=== PATIENT | male | born 1975 | race Caucasian/White ===

== ENCOUNTER 2021-10-03 16:59 | Emergency (ER) | payer OTHER ==
[~2021-10-03] VITALS: Ht 185.4 cm; Wt 131.1 kg
[~2021-10-03 16:59] MED LIST: ALBU90I INH; ALEVE220 MG PO; CODGUAEL PO; Cleocin HCl300 MG PO; GABA300; HYDACE5 PO; Ibuprofen Ib100 MG PO; MINOCIN100 MG IV; NAPR550 PO; Norco 5-325 Ta1 EACH PO; PRED20 PO; Percocet 5-3251 EACH PO; TRAM50 PO
[2021-10-03] MEDS ORDERED: METOPROLOL SUCC25 MG PO (17:57)
== END 2021-10-03 20:06 | disposition home or self-care (01) ==
LOC: ER 16:59
DX: U07.1 COVID-19 (principal); Z87.891 Personal history of nicotine dependence; Z88.0 Allergy status to penicillin; Z88.2 Allergy status to sulfonamides; Z88.1 Allergy status to other antibiotic agents
CPT/HCPCS: 36415; 99283-25; M0243; Q0243

== ENCOUNTER 2023-11-07 06:23 | Day surgery (SDC) | payer OTHER ==
[~2023-11-07] VITALS: Ht 185.4 cm; Wt 317.0 kg
[2023-11-07] VITALS (7 sets, daily range): BP systolic 121–143; BP diastolic 79–89
[~2023-11-07 06:23] MED LIST changes: +AMLO10 PO; +ATOR40TA PO; +Aspir 8181 MG PO; +CARV3.125 PO; +METOPROLOL SUCC25 MG PO; +NITR.4SL SL
--- NOTE | 2023-11-07 08:40 | NUR ---
pt back to recovery room via recliner Pt denies any pain, alert and oriented. tr band in place to right radial. pt. has 11cc of air in tr band. pt. s/o to bedside. breakfast tray provided. vss
--- NOTE | 2023-11-07 09:42 | NUR ---
TR BAND DEFLATION INTITATED PER PROTOCOL. PT VSS REMAIN STABLE. 4CC OF AIR REMOVED, NO OOZING, NO HEMATOMA. SITE REMAINS UNCHANGED FROM INTIAL ASSESSMENT.
--- NOTE | 2023-11-07 10:00 | NUR ---
PT. TR BAND DEFLATED WITH OUT DIFFICULTY. NO OOZING NO HEMATOMA. DISCHARGE INSTRUCTIONS REVIEWED IN DETAIL WITH PT AND PT . NO FURTHER QUESTIONS AT THIS TIME. VSS.
--- NOTE | 2023-11-07 10:20 | NUR ---
ZIO MONITOR TO BE PLACED PRIOR TO DISCHARGE. PT. VSS.
--- NOTE | 2023-11-07 10:59 | NUR ---
PT. HAS ZOLL MONITOR IN PLACE, TR BAND SITE REMAINS UNCHANGED, NO OOZING, NO HEMATOMA. CLEAR OCCCLUSIVE BANDAGE PLACED PRIOR TO DEPARTURE. PT. AND SPOUSE HAD NO FURTHER QUESTIONS UPON DISCHARGE. IV REMOVED CATHETER INACT. VSS UPON DISCHARGE. TAKEN VIA WHEEL CHAIR WITH ALL BELONINGS TO EXIT, PT SPOUSE TO DRIVE PT HOME.
== END 2023-11-07 12:14 | disposition home or self-care (01) ==
LOC: MHTC 06:23
DX: R07.89 Other chest pain (principal); R42 Dizziness and giddiness; I10 Essential (primary) hypertension; E78.5 Hyperlipidemia, unspecified; G47.33 Obstructive sleep apnea (adult) (pediatric); E66.01 Morbid (severe) obesity due to excess calories; Z88.0 Allergy status to penicillin; Z88.5 Allergy status to narcotic agent; Z88.8 Allergy status to other drugs, medicaments and biological substances; Z79.899 Other long term (current) drug therapy
CPT/HCPCS: 76937; 93242; 93458; 99152; A9270; C1769; C1887; C1894; J1644; J2250; J3010; J7030; J7050; Q9967

== ENCOUNTER 2025-05-07 06:23 | Day surgery (SDC) | payer OTHER, BC ==
[~2025-05-07] VITALS: Ht 185.4 cm; Wt 140.6 kg
[2025-05-07] VITALS (10 sets, daily range): BP systolic 110–157; BP diastolic 69–107
[~2025-05-07 06:23] MED LIST changes: +CLIN150 PO; +COQ-10100 MG PO; +ROPI.25 PO
[2025-05-07] MEDS ORDERED: EPINEPhrine HCl 1 MG / ML 30ML Vial ONE (06:57)
[2025-05-07] MEDS ORDERED: Bupivacaine 0.25% Epi 1:200000 30 ML Vial ONE (06:57)
[2025-05-07] MEDS ORDERED: Midazolam HCl 1MG / ML 2ML Vial ONE (07:03)
[2025-05-07] MEDS ORDERED: FentaNYL Citrate 50 MCG/ML 2 ML Injection ONE (07:03)
[2025-05-07] MEDS ORDERED: CeFAZolin Sodium 3,000 MG in NS 100 ML IV SCH (07:05)
--- NOTE | 2025-05-07 07:34 | NUR ---
History, Chart, Medications and Allergies reviewed before start of procedure.Lungs clear T/O to Auscultation.
[2025-05-07] MEDS ORDERED: Ondansetron HCl 2 MG / ML 2ML Vial ONE ×2 (07:57→09:13)
[2025-05-07] MEDS ORDERED: Dexamethasone Sod Phos 10 MG/ML 1ML VIAL ONE (07:57)
[2025-05-07] MEDS ORDERED: FentaNYL Citrate 50 MCG/ML 2 ML Injection IV PRN ×2 (08:25→08:30)
[2025-05-07] MEDS ORDERED: HYDROmorphone HCl/Pf 1MG SYR IV PRN ×2 (08:25→08:30)
[2025-05-07] MEDS ORDERED: Ondansetron HCl 2 MG / ML 2ML Vial IV PRN (08:30)
[2025-05-07] MEDS ORDERED: HYDROmorphone HCl/Pf 1MG SYR ONE (08:30)
[2025-05-07] MEDS ORDERED: Ketorolac Tromethamine 30mg Vial ONE (08:31)
--- NOTE | 2025-05-07 10:19 | NUR ---
Discharge instructions reviewed with patient. Patient verbalizes understanding. Copy given to patient to take home. Clinton-wrap to R-Knee c/d/i. Polar pack sent with pt. Cap refill <3 sec. Prescription sent electronically. Patient States Post-Procedure ride home has been arranged. Discharged via wheelchair to private car for ride home.
== END 2025-05-07 10:25 | disposition home or self-care (01) ==
LOC: ORSCMMR 06:23 → ORD 07:30 → ORSCMMR 07:30
PROVIDERS: Orthopaedic Surgery Sports Medicine
PROC: 0SBC4ZZ Excision of Right Knee Joint, Percutaneous Endoscopic Approach (ICD-10-PCS; principal; 2025-05-07 07:30)
DX: S83.241A Other tear of medial meniscus, current injury, right knee, initial encounter (principal); I10 Essential (primary) hypertension; E78.5 Hyperlipidemia, unspecified; G47.33 Obstructive sleep apnea (adult) (pediatric); I49.5 Sick sinus syndrome; E66.9 Obesity, unspecified; Z68.41 Body mass index [BMI] 40.0-44.9, adult; Z79.82 Long term (current) use of aspirin; Z79.899 Other long term (current) drug therapy
CPT/HCPCS: A9270; C1713; J0165; J0690; J1100; J1171; J1885; J2250; J2405; J2704; J3010; J7120